=== PATIENT | female | born 1980 | race Hispanic/Latino ===

== ENCOUNTER → 2018-10-10 | Outpatient (REF) | payer OTHER ==
[2018-10-12 14:09] LABS: HPV HYBRID CAPTURE II Negative (Negative)
== END ==
LOC: M LAB REF 17:27
PROVIDERS: ATTEND Family Medicine
DX: Z01.419 Encounter for gynecological examination (general) (routine) without abnormal findings (principal); Z11.51 Encounter for screening for human papillomavirus (HPV)
CPT/HCPCS: 87624; G0123

== ENCOUNTER → 2018-10-11 | Outpatient (CLI) | payer OTHER ==
[2018-10-11 14:22] LABS: BASO % 0.3 % (0.0-1.0); EOS # 0.2 10^3/uL (0.0-0.50); EOS % 1.9 % (0.0-3.0); HEMATOCRIT 42.7 % (36.0-47.0); HEMOGLOBIN 14.1 g/dl (12.0-15.5); LYMPH # 3.7 10^3/uL (1.5-4.5); LYMPH % 38.7 % (24.0-44.0); MEAN CORPUSCULAR HEMOGLOBIN 29.8 pg (27.0-33.0); MEAN CORPUSCULAR VOLUME 90.3 fl (80.0-96.0); MONO # 0.6 10^3/uL (0.0-0.8); MONO % 6.7 % (0.0-5.0); NEUTROPHILS % 52.1 % (36.0-66.0); PLATELET COUNT, AUTOMATED 372 10^3/uL (150-450); RED BLOOD COUNT 4.73 10^6/uL (4.00-5.40); WHITE BLOOD COUNT 9.6 10^3/uL (4.0-10.0)
[2018-10-11 14:49] LABS: ALBUMIN 3.8 GM/DL (3.2-5.2); ALT/SGPT 73 U/L (12-78); BILIRUBIN,TOTAL 0.3 MG/DL (0.2-1.0); BLOOD UREA NITROGEN 11 MG/DL (7-18); CALCIUM LEVEL 8.4 MG/DL (8.5-10.1); CARBON DIOXIDE LEVEL 25 MEQ/L (21-32); CHLORIDE LEVEL 106 MEQ/L (98-107); CHOLESTEROL LEVEL 138 MG/DL (<200); CHOLESTEROL RISK RATIO 3.631 (<5); CREATININE FOR GFR 0.72 MG/DL (0.55-1.30); GLOMERULAR FILTRATION RATE > 60.0 (>60); GLUCOSE, FASTING 95 MG/DL (70-100); HDL CHOLESTEROL 38 MG/DL (>40); LDL CHOLESTEROL 83 MG/DL (<100); NON-HDL-C 100 MG/DL; POTASSIUM SERUM 4.5 MEQ/L (3.5-5.1); SODIUM LEVEL 138 MEQ/L (136-145); TOTAL PROTEIN 7.6 GM/DL (6.4-8.2); TRIGLYCERIDES LEVEL 87 MG/DL (<150)
[2018-10-11 14:51] LABS: HEMOGLOBIN A1c 6.1 %
== END ==
LOC: M SMT 09:15
PROVIDERS: ATTEND Physician Assistant
DX: Z13.29 Encounter for screening for other suspected endocrine disorder (principal)

== ENCOUNTER → 2020-05-21 | Outpatient (CLI) | payer OTHER | LOC: M LABSMTC 12:35 | PROVIDERS: ATTEND Family Medicine | DX: Z20.828 Contact with and (suspected) exposure to other viral communicable diseases (principal) ==

== ENCOUNTER → 2020-11-22 | Outpatient (CLI) | payer OTHER ==
--- NOTE | 2020-11-22 15:49 | REP ---
INDICATION: ADDL VIEWS/LEFT BREAST NODULE; LEFT BREAST NODULE. COMPARISON: 10/08/2020. TECHNIQUE: There is no compression views left breast performed. ML and CC tomosynthesis performed of the right breast. Focused left breast ultrasound performed. FINDINGS: Scattered fibroglandular tissue is again seen bilaterally. No persistent nodular opacity is seen in the right breast. In the left breast there is a persistent mildly lobulated nodule superiorly and medially measuring about 7 mm in diameter, located approximately 6 cm from the nipple. Focused left breast ultrasound performed between 8 and 10 o'clock. No discrete cystic or solid nodule is seen. IMPRESSION: BIRADS/ACR category 4, suspicious. Persistent nodule upper inner left breast not seen by ultrasound. Recommend stereotactic biopsy. This mammogram was interpreted with the aid of an FDA-approved computer-aided detection system. The patient letter being requested is [id number]. RECOMMENDATION: As above. <Electronically signed by Hiro Meyers > 11/22/20 [id number]
== END ==
LOC: M WHC 14:06
PROVIDERS: ATTEND Family Medicine
DX: N63.22 Unspecified lump in the left breast, upper inner quadrant (principal); N64.89 Other specified disorders of breast
CPT/HCPCS: 76642; 77065; G0279

== ENCOUNTER → 2020-12-14 | Outpatient (CLI) | payer OTHER ==
[2020-12-14 10:57] VITALS: BP 122/78
--- NOTE | 2020-12-14 16:54 | REP ---
INDICATION: R92.8 ABN MAMMO LT BREAST,STEREOTACTIC BIOPSY. COMPARISON: None. TECHNIQUE: The procedure was performed under the direct supervision of Dr. Meyers. The patient has a history of a 7 mm lobulated nodule superiorly and medially in the left breast seen on a previous mammogram dated 11/22/2020. The risks and benefits of the procedure were explained to the patient and informed consent was obtained. A craniocaudal approach was utilized. The nodule was localized using stereotactic mammographic guidance. 1% Xylocaine was used as a local anesthetic. A 10 gauge, suction assisted Mammotome needle was inserted and 7 core biopsy samples were obtained. A marker clip (HydroMARK shape 1) was placed at the biopsy site. The patient tolerated the procedure well and there were no immediate complications. After the appropriate amount of monitored convalescence, the patient was discharged from the department. FINDINGS: None IMPRESSION: Stereotactic left breast biopsy with marker clip placement (HydroMARK shape 1). <Electronically signed by Willie Martinez > 12/14/20 [id number] <Electronically signed by Hiro Meyers > 12/14/20 [id number]
--- NOTE | 2020-12-14 16:54 | REP ---
INDICATION: R92.8 ABN MAMMO LT BREAST,POST STEREOTACTIC BIOPSY. COMPARISON: 10/08/2020, 11/22/2020. TECHNIQUE: ML and CC views left breast performed following stereotactic biopsy of a nodule in the upper inner aspect. FINDINGS: Biopsy clip is seen at the site of the nodule. IMPRESSION: Successful stereotactic biopsy of nodule upper inner left breast. RECOMMENDATION: Clinical follow-up. <Electronically signed by Hiro Meyers > 12/14/20 [id number]
== END ==
LOC: M WHCPRO 06:30
PROVIDERS: ATTEND Surgery
DX: N60.12 Diffuse cystic mastopathy of left breast (principal); N60.89 Other benign mammary dysplasias of unspecified breast

== ENCOUNTER → 2021-01-03 | Outpatient (CLI) | payer OTHER ==
--- NOTE | 2021-01-04 04:36 | REP ---
INDICATION: PALPABLE LYMPH NODES, LEFT AXILLA COMPARISON: None TECHNIQUE: Realtime grayscale B-mode ultrasound examination using curved array transducer. FINDINGS: Ultrasound examination demonstrates relatively normal appearing bilateral axillary lymph nodes. Right-sided lymph nodes measure up to 2.6 x 0.8 x 1.1 cm and the patient's palpable mass corresponds to a small 6 x 3 x 6 mm hypoechoic area in the superficial subcutaneous tissue which is nonspecific in appearance and may represent small lipoma. Left-sided lymph nodes measure up to 3.8 x 1.1 x 1.0 cm and 2.2 x 0.9 x 1.4 cm. IMPRESSION: 1. Normal appearing bilateral axillary lymph nodes. 2. Right-sided palpable mass corresponds to a small 6 mm hypoechoic focus in the superficial subcutaneous tissue which may represent small lipoma. <Electronically signed by Dontae Lyons > 01/04/21 [id number]
== END ==
LOC: M WHC 12:01
PROVIDERS: ATTEND Surgery
DX: R59.9 Enlarged lymph nodes, unspecified (principal)